=== PATIENT | female | born 1960 | race Caucasian/White ===

== ENCOUNTER 2022-02-06 12:04 | Emergency (ER) | payer OTHER ==
[2022-02-06 12:35] VITALS: BP 147/98; PULSE 96; RESP 20; TEMP 98; BMI 34.9
[2022-02-06] MEDS ORDERED: OXYMETAZOLINE 0.05% NASAL SOLUTION 15 ML BOTTLE NS ONE (13:02)
[2022-02-06] MEDS ORDERED: PHENYLEPHRINE 0.25% NASAL SPRAY 15 ML BOTTLE NS SCH (22:00)
== END 2022-02-06 14:40 | disposition home or self-care (01) ==
LOC: FER 12:04
DX: R04.0 Epistaxis (principal)
CPT/HCPCS: 99283-25